=== PATIENT | female | born 2005 | race Caucasian/White ===

== ENCOUNTER 2025-03-17 10:25 | Emergency (ER) | payer BC, MEDICAID, SELFPAY ==
[2025-03-17 10:26] VITALS: BP 120/65; PULSE 81; RESP 16; TEMP 36.8; O2SAT 100; BMI 20.1
--- NOTE | 2025-03-17 10:30 | XRR_ITS ---
PROCEDURE INFORMATION: Exam: XR Chest Exam date and time: 03/17/2025 10:33 AM Age: 20 years old Clinical indication: Other: Seizure TECHNIQUE: Imaging protocol: Radiologic exam of the chest. Views: 1 view. COMPARISON: No relevant prior studies available. FINDINGS: Lungs: Unremarkable. No consolidation. Pleural spaces: Unremarkable. No pleural effusion. No pneumothorax. Heart/Mediastinum: Unremarkable. No cardiomegaly. Bones/joints: Mild scoliosis. Otherwise, unremarkable. XR/XR chest 1V portable [id number] IMPRESSION: No acute disease.
--- NOTE | 2025-03-17 10:31 | W.ED.SEIZURE ---
HPI - Seizure General: Chief Complaint: Seizure Stated Complaint: seizure Time Seen by Provider: 03/17/25 10:26 Source: patient and EMS Mode of arrival: EMS Limitations: no limitations History of Present Illness: HPI Narrative: Patient is a 20-year-old female presents to ED today via EMS after she was found in a [employer] bathroom reportedly having a seizure. Patient states she is originally from [place] and was there with her friend and they were headed to [place]. She states she does have a history of seizures and is supposed to be taking Keppra although admittedly has not been taking this medication-states she does not have a reason why-has not taken it for 6 months. States she does have a neurologist back home in [place]. No known injury or trauma during the seizure. EMS reports she was postictal when they responded. She is alert and oriented here in the emergency department. She does report a mild headache which she states is common following seizures. She states over the past few days she has felt sick with occasional nausea and a few episodes of vomiting over the past 2 to 3 days. She is not having any abdominal pain. MD complaint: seizure Onset (ago): hour(s) Witnessed: Yes - by Bystander Trauma: No Seizure History: Yes Place: gas station Possible Precipitating Event: other (not taking her seizure medications; recent illness?) Associated symptoms: Deny chest pain, chills, fever(s), malaise or syncope Treatments prior to arrival: none Related Data Home Medications ?Medication ?Instructions ?Recorded ?Confirmed ferrous sulfate 325 mg (65 mg 325 mg PO DAILY 03/17/25 03/17/25 iron) tablet (Iron (ferrous sulfate)) Previous Rx's ?Medication ?Instructions ?Recorded levetiracetam 500 mg tablet 500 mg PO BID #60 tabs 03/17/25 (Keppra) Allergies Allergy/AdvReac Type Severity Reaction Status Date / Time cephalexin (From Keflex) Allergy ALGY-Rash Verified 03/17/25 10:34 Review of Systems Const: Denies: fever(s), chills, body aches, fatigue or malaise Eyes: Denies: change in vision, blurry vision, photophobia, floaters or seeing flashes Card: Denies: chest pain, palpitations, irregular heart rhythm, lightheadedness, syncope or dyspnea on exertion Resp: Denies: dyspnea, productive cough or pain on inspiration GI: Reports: nausea and vomiting; Denies: abdominal pain, heartburn or diarrhea : Denies: flank pain or dysuria Musc: Denies: neck pain, back pain, extremity pain, extremity swelling or joint pain Skin/Breast: Denies: rash Neuro: Reports: headache(s); Denies: numbness in extremities, weakness in extremities, sensory changes, frequent falls, dizziness, Slurred speech present or difficulty communicating thoughts Physical Exam Const: COMMON NORMALS: no acute distress, average body habitus, patient oriented x3, no limitations, healthy appearing, alert and well nourished GENERAL APPEARANCE: cooperative ORIENTATION/CONSCIOUSNESS: Yes awake, Yes oriented to person, Yes oriented to place and Yes oriented to time HENMT: COMMON NORMALS: normocephalic and atraumatic HEAD & SCALP: normal to inspection, normocephalic and atraumatic FACE & SINUS: normal facial exam and face symmetric MOUTH: Normal oral and palatal mucosa present, lip normal and tongue normal Eye: COMMON NORMALS: Equal, round and reactive pupils present and EOMs intact bilaterally GENERAL EYE: appearance normal, both eyes and all related structures and normal light reflex PUPIL: Yes Equal, round and reactive pupils present DIRECT OPHTHALMOSCOPY: Yes normal light reflex Neck/C-Spine: COMMON NORMALS: full ROM, no lymphadenopathy, supple and no meningeal signs CERVICAL SPINE: No Cervical spine tenderness Chest: COMMONS NORMALS: normal inspection of the chest Resp: COMMON NORMALS: normal respiratory effort and clear to auscultation bilaterally AUSCULTATION: clear to auscultation bilaterally Cardio: COMMON NORMALS: regular rate and regular rhythm RATE: regular rate RHYTHM: regular rhythm GI: COMMON NORMALS: Normal to inspection, nondistended, normoactive bowel sounds present, Soft to palpation, non-tender, No hepatosplenomegaly present and no masses PALPATION: Yes Soft to palpation and Yes No hepatosplenomegaly present Back/Pelvis: COMMON NORMALS: thoracic and lumbar spine normal to inspection Extremity: COMMON NORMALS: normal to inspection GENERAL: Yes normal exam except as noted Neuro: JACEK COMA SCALE: document GCS findings Christiana coma scale eye opening: Spontaneous Christiana coma scale verbal response: Orientated Jacek coma scale motor response: Obey commands Christiana coma scale total score: 15 COMMON NORMALS: patient oriented x3, CN's II-XII intact bilaterally, moves all extremities, no focal motor deficits and no sensory deficits noted SENSORIUM/ORIENTATION: Yes alert, Yes oriented to person, Yes oriented to place and Yes oriented to time MENINGEAL SIGNS: Yes no meningeal signs Skin: COMMON NORMALS: no rashes or lesions noted GENERAL SKIN EXAM: no rashes or lesions noted TRAUMA: no lacerations or abrasions Course Vital Signs: Vital signs: Vital Signs Temperature 98.2 F 03/17/25 10:26 Pulse Rate 95 03/17/25 11:27 Respiratory Rate 16 03/17/25 10:26 Blood Pressure 141/59 03/17/25 11:27 Pulse Oximetry 99 03/17/25 11:27 Oxygen Delivery Me thod Room Air 03/17/25 11:27 MDM - Seizure MDM Narrative Medical decision making narrative: Patient appears in no acute distress. Her vital signs are stable. Blood work is unremarkable. UDS is negative. Recommend she begin taking her Keppra as directed by her neurologist. Will provide her a prescription for this. Recommend she follow-up with neurology when she gets back home to [place]. She was given IV loading dose of Keppra while here. Medical Records Attestation: I reviewed the patient's medical records. Lab Data Attestation: I reviewed the patient's lab results. 03/17/25 10:41 03/17/25 10:41 Labs: Radiology Impressions Chest X-Ray 03/17/25 10:30 IMPRESSION: No acute disease. Laboratory Results WBC 9.57 10^3/uL (4.5-13.0) 03/17/25 10:41 RBC 4.37 10^6/uL (3.85-5.65) 03/17/25 10:41 Hgb 13.00 g/dL (12.4-14.8) 03/17/25 10:41 Hct 39.9 % (36-47) 03/17/25 10:41 MCV 91.3 fl (85-98) 03/17/25 10:41 MCH 29.7 pg (27-33) 03/17/25 10:41 MCHC 32.6 g/dL (30-55) 03/17/25 10:41 RDW 13.1 % (12.1-15.1) 03/17/25 10:41 Plt Count 216 10^3/cmm (157-399) 03/17/25 10:41 MPV 10.6 fL (7.4-10.4) H 03/17/25 10:41 Neut % (Auto) 82.6 % 03/17/25 10:41 Lymph % (Auto) 10.8 % 03/17/25 10:41 [place] % (Auto) 5.5 % 03/17/25 10:41 Eos % (Auto) 0.5 % 03/17/25 10:41 Baso % (Auto) 0.4 % 03/17/25 10:41 Neut # (Auto) 7.90 10^3/uL (1.8-8.0) 03/17/25 10:41 Lymph # (Auto) 1.0 10^3/uL (1.5-6.5) L 03/17/25 10:41 [place] # (Auto) 0.5 10^3/uL (0.2-0.9) 03/17/25 10:41 Eos # (Auto) 0.1 10^3/uL (0.0-0.8) 03/17/25 10:41 Baso # (Auto) 0.0 10^3/uL (0.0-0.1) 03/17/25 10:41 Nucleated RBC % (auto) 0 % 03/17/25 10:41 Nucleated RBCs # 0.0 /100WBC 03/17/25 10:41 Sodium 137 mmol/L (136-145) 03/17/25 10:41 Potassium 3.5 mmol/L (3.5-5.1) 03/17/25 10:41 Chloride 102 mmol/L (98-107) 03/17/25 10:41 Carbon Dioxide 24 mmol/L (22-29) 03/17/25 10:41 Anion Gap 14.5 (5-19) 03/17/25 10:41 BUN 11 mg/dL (6-20) 03/17/25 10:41 Creatinine 0.6 mg/dL (0.5-0.9) 03/17/25 10:41 GFR Calculation 127.5 mL/min (90-130) 03/17/25 10:41 Glucose 89 mg/dL (65-115) 03/17/25 10:41 Calculated Osmolality 283 mOsm/kg (285-295) L 03/17/25 10:41 Calcium 9.0 mg/dL (8.5-10.5) 03/17/25 10:41 Total Bilirubin 0.7 mg/dL (0.15-1.2) 03/17/25 10:41 AST 12 U/L (0-32) 03/17/25 10:41 ALT 9 U/L (0-33) 03/17/25 10:41 Alkaline Phosphatase 55 U/L (35-105) 03/17/25 10:41 Total Protein 6.9 g/dL (6.6-8.7) 03/17/25 10:41 Albumin 4.5 g/dL (3.5-5.2) 03/17/25 10:41 Globulin 2.4 g/dL (1.3-4.6) 03/17/25 10:41 HCG, Qual Negative (Negative) 03/17/25 10:41 Urine Color Yellow (Yellow) 03/17/25 11:18 Urine Appearance Clear (CLEAR) 03/17/25 11:18 Urine pH 6.0 (5-7) 03/17/25 11:18 Ur Specific [place] 1.015 (1.005-1.030) 03/17/25 11:18 Urine Protein Negative (Negative) 03/17/25 11:18 Urine Glucose (UA) Negative (Normal) 03/17/25 11:18 Urine Ketones Trace (Negative) 03/17/25 11:18 Urine Blood Trace (Negative) A 03/17/25 11:18 Urine Nitrate Negative (Negative) 03/17/25 11:18 Urine Bilirubin Negative (Negative) 03/17/25 11:18 Urine Urobilinogen 0.2 mg/dL (Negative) 03/17/25 11:18 Ur Leukocyte Esterase Negative (Negative) 03/17/25 11:18 Urine RBC 0-2 /hpf (0-2) 03/17/25 11:18 Urine WBC 0-5 /hpf (0-5) 03/17/25 11:18 Ur Squamous Epith Cells 0-5 /hpf (0-5) 03/17/25 11:18 Amorphous Sediment Not Reportable 03/17/25 11:18 Urine Bacteria None seen /hpf (NONE) 03/17/25 11:18 Hyaline Casts 0-4 /lpf H 03/17/25 11:18 Urine Opiates Screen Negative ng/mL (Negative) 03/17/25 11:18 Ur Barbiturates Screen Negative ng/mL (Negative) 03/17/25 11:18 Ur Phencyclidine Scrn Negative ng/mL (Negative) 03/17/25 11:18 Ur Amphetamines Screen Negative ng/mL (Negative) 03/17/25 11:18 U Benzodiazepines Scrn Negative ng/mL (Negative) 03/17/25 11:18 Urine Cocaine Screen Negative ng/mL (Negative) 03/17/25 11:18 U Marijuana (THC) Screen Negative ng/mL (Negative) 03/17/25 11:18 All radiology interpretation(s) finalized by discharge Discharge Plan Discharge Patient Disposition: Home Clinical Impression: Seizure Condition: Stable Prescriptions: New levetiracetam [Keppra] 500 mg tablet 500 mg PO BID Qty: 60 0RF No Action ferrous sulfate [Iron (ferrous sulfate)] 325 mg (65 mg iron) Tablet 325 mg PO DAILY Discharge Orders: Discharge ED (Routine); Ordered 03/17/25 Ordered By: Rama Dwyer Patient Instructions: Epilepsy (DC), Seizures Activity Restrictions/Additional Instructions: As we discussed, I recommend you begin taking your Keppra. Please follow-up with your neurologist once you get back home to [place]. Print Language: [place] Citizen Coding Level of Care Code ED Rooming House Keeper for Jennifer Omalley
[2025-03-17] MEDS: metoclopramide 5 mg/mL SDV 2 mL 10 MG IVP (10:45)
[2025-03-17] MEDS: levETIRAcetam 1,000 MG/100 ML PREMIX 400 MG IV (10:45)
[2025-03-17 10:47] LABS: Basophils % 0.4 %; Eosinophils # 0.1 10^3/uL (0.0-0.8); Eosinophils % 0.5 %; Hematocrit 39.9 % (36-47); Lymphocytes % 10.8 %; Mean Corpuscular HGB Conc 32.6 g/dL (30-55); Mean Corpuscular Hemoglobin 29.7 pg (27-33); Mean Corpuscular Volume 91.3 fl (85-98); Mean Platelet Volume 10.6 fL (7.4-10.4); Monocytes # 0.5 10^3/uL (0.2-0.9); Monocytes % 5.5 %; Neutrophils % 82.6 %; Nucleated Red Blood Cells % 0 %; Platelet Count 216 10^3/cmm (157-399); Red Blood Count 4.37 10^6/uL (3.85-5.65); Red Cell Distribution Width 13.1 % (12.1-15.1); White Blood Count 9.57 10^3/uL (4.5-13.0)
[2025-03-17 11:02] LABS: Alanine Aminotransferase 9 U/L (0-33); Albumin Level 4.5 g/dL (3.5-5.2); Alkaline Phosphatase 55 U/L (35-105); Anion Gap 14.5 (5-19); Aspartate Amino Transferase 12 U/L (0-32); Blood Urea Nitrogen 11 mg/dL (6-20); Carbon Dioxide 24 mmol/L (22-29); Chloride 102 mmol/L (98-107); Creatinine Clr Calc Pharmacy 137.5574; Globulin 2.4 g/dL (1.3-4.6); Glomerular Filtration Rate 127.5 mL/min (90-130); Glucose 89 mg/dL (65-115); Osmolality Calculated 283 mOsm/kg (285-295); Potassium 3.5 mmol/L (3.5-5.1); Sodium 137 mmol/L (136-145); Total Bilirubin 0.7 mg/dL (0.15-1.2); Total Protein 6.9 g/dL (6.6-8.7)
[2025-03-17 11:03] LABS: HCG, Serum Qual Negative (Negative)
[2025-03-17 11:26] LABS: Bilirubin Urine Negative (Negative); Blood Urine Trace (Negative); Glucose Urine UA Negative (Normal); Ketones Urine Trace (Negative); Leukocyte Esterase Urine Negative (Negative); Nitrate Urine Negative (Negative); Protein Urine Negative (Negative); Specific Gravity, Urine 1.015 (1.005-1.030); Urine Appearance Clear (CLEAR); Urine Color Yellow (Yellow); Urobilinogen Urine 0.2 mg/dL (Negative)
[2025-03-17 11:27] VITALS: BP 141/59; PULSE 95; O2SAT 99
[2025-03-17 11:31] LABS: Add Urine Microscopic? YES; Bacteria Urine None Seen /hpf; Hyaline Casts Urine 0-4 /lpf; RBC Urine 0-2 /hpf (0-2); Squamous Epithelial Cell Urine 0-5 /hpf (0-5); WBC Urine 0-5 /hpf (0-5)
[2025-03-17 11:33] LABS: Amphetamines Screen Urine Negative (Negative); Barbiturates Screen Urine Negative (Negative); Benzodiazepines Screen Urine Negative (Negative); Cocaine Screen Urine Negative (Negative); Opiate Screen Urine Negative (Negative); PCP Screen Urine Negative (Negative); THC Screen Urine Negative (Negative)
--- NOTE | 2025-03-17 11:34 | PC.NURSE ---
PT ambulated from room to bathroom with no issues.
[2025-03-17 12:27] VITALS: BP 121/74; PULSE 77; O2SAT 96
--- NOTE | 2025-03-17 13:51 | PC.NURSE ---
4144. Received phone call from [facility] pharmacy [facility] from bety Martell, requesting a MD that oversees TOSHA Dwyer, was told by nurse Neena JOVEL ER that it would be Dr. Rojas Lyon. Information relayed to pharmacy ancillary.
== END 2025-03-17 12:28 | disposition home or self-care (01) ==
PROVIDERS: Emergency Provider Physician Assistant
DX: R56.9 Unspecified convulsions (principal); Z91.148 Patient's other noncompliance with medication regimen for other reason
CPT/HCPCS: 71045; 80053; 80306; 81001; 84703; 85025; 96374; 96375; 99284; J1953; J2765